=== PATIENT | male | born 1935 | race Caucasian/White ===

== ENCOUNTER 2019-10-01 18:34 | Inpatient (IN) | payer MEDICARE ==
--- NOTE | 2019-10-01 20:05 | ER Document Report ---
ED General - General Chief Complaint: Near Syncope Stated Complaint: SYNCOPE Time Seen by Provider: 10/01/19 18:43 Primary Care Provider: ROCHELLE DAVID MD [ASSOCIATE] - Follow up as needed - [facility] Notes: Chief complaint: Syncope 83-year-old man transported here via EMS for evaluation of syncopal episode. This man has severe hearing impairment and is a relatively poor historian. I do not have any of his old records here because he is usually treated in [facility]. Apparently this man has a pacemaker and has had CABG procedure in the past and has had some syncopal episodes previously with a fairly significant episode which occurred about 2 years ago and at that time was apparently felt to be related to cardiac dysrhythmia. He also has had extensive abdominal surgery previously for bowel obstruction and perforation possibly due to diverticular disease. He says he has been vomiting and having mid abdominal cramping intermittently for over 2 weeks. He was standing in his kitchen this evening trying to open a package of takeout delivery food when he told his that he felt unsteady as though he was perhaps going to faint. He then proceeded to crumpled to the floor and was briefly unresponsive. apparently did not observe any tonic-clonic movements. EMS was called and arrived in less than 5 minutes noting patient was regaining consciousness at that time with no other specific complaints. They transported him here. They reported that his vital signs were stable during transport. Patient further reports that he has had some dark stools within the last several days. He denies any known prior history of GI bleeding. Patient has some dull headache at this time and some soreness of his neck. He denies any neurologic deficit. He denies any chest pain or difficulty breathing. He says he has intermittent cramping abdominal discomfort. He denies dysuria. He denies any long bone injuries related to his fall. - Related Data Allergies/Adverse Reactions: Penicillins Allergy (Verified 10/01/19 18:44) Past Medical History - General Information source: Patient, Emergency Med Personnel - Social History Smoking Status: Former Smoker Family History: Reviewed & Not Pertinent Patient has suicidal ideation: No Patient has homicidal ideation: No - Past Medical History Cardiac Medical History: Reports: Hx Coronary Artery Disease, Hx Hypercholesterolemia, Hx Hypertension Endocrine Medical History: Reports: Hx Diabetes Mellitus Type 2 GI Medical History: Reports: Hx Gastroesophageal Reflux Disease, Other - History of bowel perforation Psychiatric Medical History: Reports: Hx Depression Past Surgical History: Reports: Hx Abdominal Surgery - bowel repair, Hx Cardiac Surgery - pacemaker, stent, Hx Pacemaker Review of Systems - Review of Systems Notes: Constitutional: Negative for fever. HENT: Negative for sore throat. Eyes: Negative for visual changes. Cardiovascular: Negative for chest pain. Respiratory: Negative for shortness of breath. Gastrointestinal: As per HPI. Genitourinary: Negative for dysuria. Musculoskeletal: Negative for back pain. Skin: Negative for rash. Neurological: As per HPI. 10 point ROS negative except as marked above and in HPI. Physical Exam - Vital signs Vitals: Temp Resp BP Pulse Ox 97.4 F 17 178/83 H 96 10/01/19 18:36 10/01/19 18:36 10/01/19 18:36 10/01/19 18:36 - Notes Notes: GENERAL: Elderly male with profound hearing impairment and use of hearing aids appearing in no acute distress. SKIN: Good turgor no rashes. HEAD: Normocephalic. Multiple superficial abrasions over forehead area. EYES: PERRLA. EOMI. Conjunctivae and sclerae clear. EARS: CANALS AND TMS CLEAR. Profound hearing impairment with use of hearing aids bilaterally. NOSE: CLEAR. MOUTH: Moist mucosa. Very poor dentition with advanced dental decay. No stridor or edema. No drooling. NECK: Mild diffuse tenderness posteriorly without step-off. No masses or thyromegaly. No adenopathy. Carotids 2+ without bruits. No JVD. BACK: Symmetrical without tenderness. CHEST: Healed midline CABG scar present. Pacemaker present upper anterior chest left. Respirations unlabored. Breath sounds clear and symmetrical. HEART: Regular rhythm. No murmur gallop or rub. ABDOMEN: Patient has a large ventral hernia which is easily reducible. Multiple surgical scars present. Soft nontender without masses, organomegaly or rebound. Bowel sounds normally active. No bruits. Rectal: Normal tone. No masses. Stool is heme negative and light brown in color. EXTREMITIES: No edema. No calf tenderness. Cap refill less than 1.5 seconds. Dorsalis pedis and posterior tibial pulses 3+ and symmetrical. NEUROLOGICAL: GCS 15. Alert and oriented x3. Fluent speech. Cranial nerves II through XII intact. Sensorimotor and cerebellar normal. Normal tone. PSYCHIATRIC: Appropriate affect. Course - Re-evaluation Re-evalutation: 10/02/19 01:08 This is an elderly gentleman with multiple medical problems who had an unexplained syncopal episode at home. I spoke with his by telephone and she says that he complained of some abdominal pain and then felt dizzy and that she tried to push a chair up underneath him but he went all the way to the floor and was unconscious for about 1 minute. He apparently had fecal incontinence but no urinary continence never no tonic-clonic movements described. When he regained consciousness he was fully oriented. He was noted to have some abrasions over the facial area here. He has a pacemaker. He has a substantial ventral hernia from prior abdominal surgery. His stool is heme-negative here. He is not hypotensive. Hemoglobin is normal. White count is not elevated. His EKG did not show acute changes although he is in a paced rhythm. His troponin is normal. His chemistry profile shows some mild renal insufficiency and we do not have any baseline studies for comparison. Chest x-ray showed some cardiomegaly and has had a previous CABG and pacemaker. CT of the abdomen showed postsurgical changes and a lot of retained stool in the colon. Head CT shows a meningioma present left frontal area. CT of the C-spine shows changes from all cervical fusion with hardware present but there is no fracture. indicates that he had surgery in the past for pituitary tumor. I was able to contact Dr. Randhawa in the neurosurgery department at [facility] in [place] and he has reviewed her current CT as well as old records for this gentleman. 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 He is also known to have a left frontal meningioma. We discussed possibility this man could have had a seizure. Dr. Espinal recommended against loading him with an anticonvulsant at this time. He did not feel the patient need to be transferred. He recommended local admission by medicine for at least 24 hours. He indicates that [facility] neurosurgery will be happy to see this gentleman for follow-up. 10/02/19 01:23 Admission has been accepted by the on-call hospitalist Dr. Ayaz Martin at this time. - Vital Signs Vital signs: Temp Pulse Resp BP Pulse Ox 98.0 F 65 18 104/74 97 10/02/19 00:29 10/02/19 00:36 10/02/19 00:29 10/02/19 00:36 10/02/19 00:28 - Laboratory Result Diagrams: 10/01/19 18:42 10/01/19 18:42 Laboratory results interpreted by me: 10/01/19 10/01/19 10/01/19 18:42 18:42 18:42 RBC 4.15 L Hgb 12.7 L Hct 37.1 L RDW 15.1 H Sodium 134.6 L BUN 32 H Creatinine 1.64 H Est GFR ( Amer) 49 L Est GFR (MDRD) Non-Af 40 L Calcium 10.3 H NT-Pro-B Natriuret Pep 1280 H Urine Protein 10/01/19 21:18 RBC Hgb Hct RDW Sodium BUN Creatinine Est GFR ( Amer) Est GFR (MDRD) Non-Af Calcium NT-Pro-B Natriuret Pep Urine Protein 30 H Discharge - Discharge Clinical Impression: Syncope and collapse Condition: Stable Disposition: ADMITTED INPATIENT Admitting Provider: Veronica (Hospitalist) Unit Admitted: Telemetry Referrals: ROCHELLE DAVID MD [ASSOCIATE] - Follow up as needed
[2019-10-01 20:06] LABS: ABSOLUTE EOSINOPHILS # (AUTO) 0.1 10^3/uL (0.0-0.6); ABSOLUTE MONOCYTES (AUTO) 0.5 10^3/uL (0.1-1.4); ABSOLUTE NEUT (AUTO) 2.5 10^3/uL (1.7-8.2); MEAN CORPUSCULAR HGB CONC 34.2 g/dL (32.0-36.0); TOTAL CELLS COUNTED % (AUTO) 100 %
[2019-10-01 20:10] LABS: ABSOLUTE LYMPHOCYTES (AUTO) 1.2 10^3/uL (0.5-4.7); BASOPHILS % (AUTO) 1.1 % (0-2); EOSINOPHILS % (AUTO) 2.3 % (0-6); HEMATOCRIT 37.1 % (37.9-51.0); HEMOGLOBIN 12.7 g/dL (13.5-17.0); LYMPHOCYTES % (AUTO) 27.2 % (13-45); MEAN CORPUSCULAR HEMOGLOBIN 30.6 pg (27.0-33.4); MEAN CORPUSCULAR VOLUME 90 fl (80-97); MONOCYTES % (AUTO) 11.5 % (3-13); PLATELET COUNT 196 10^3/uL (150-450); RED BLOOD COUNT 4.15 10^6/uL (4.35-5.55); RED CELL DISTRIBUTION WIDTH 15.1 % (11.5-14.0); SEGMENTED NEUTROPHILS % (AUTO) 57.9 % (42-78); WHITE BLOOD COUNT 4.4 10^3/uL (4.0-10.5)
[2019-10-01 20:12] LABS: INTERNATIONAL RATION (INR) 1.06; PROTHROMBIN TIME 13.8 SEC (11.4-15.4)
[2019-10-01 20:13] LABS: PARTIAL THROMBOPLASTIN TIME 31.1 SEC (23.5-35.8)
[2019-10-01 20:15] LABS: ALBUMIN 4.1 g/dL (3.5-5.0); ALKALINE PHOSPHATASE 43 U/L (38-126); ANION GAP 7 (5-19); ASPARTATE AMINO TRANSFERASE 28 U/L (17-59); BILIRUBIN,TOTAL 0.5 mg/dL (0.2-1.3); BLOOD UREA NITROGEN 32 mg/dL (7-20); CALCIUM 10.3 mg/dL (8.4-10.2); CARBON DIOXIDE 30 mmol/L (22-30); CHLORIDE 98 mmol/L (98-107); GLUCOSE 108 mg/dL (75-110); POTASSIUM 4.3 mmol/L (3.6-5.0); TOTAL PROTEIN 6.9 g/dL (6.3-8.2)
[2019-10-01 20:20] LABS: ALCOHOL < 10 mg/dL (NONE DETECTED)
[2019-10-01 20:25] LABS: NT PRO BNP 1280 pg/mL (<450)
[2019-10-01 20:27] LABS: TROPONIN I < 0.012 ng/mL
--- NOTE | 2019-10-01 20:30 | RADIOLOGY REPORT (SQ) ---
EXAM DESCRIPTION: AP upright portable view of the chest CLINICAL HISTORY: 83 years Male, syncope COMPARISON: None. FINDINGS: Exam is overpenetrated. This makes assessment of the lung apices somewhat limited. Lungs: There is pleural parenchymal scarring in the right costophrenic angle. Subtle opacification is seen in the left lower lobe with groundglass opacification. This may represent subtle infiltrate. No pneumothorax. No pleural effusion. Mediastinum: Heart size is enlarged. Dual-chamber pacemaker is in place. Vascular calcifications are seen in the thoracic aorta Bones: Postoperative change of sternotomy. Right shoulder replacement is noted. 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 IMPRESSION: 1. Probable subtle infiltrate in the left lung base. This is nonspecific but may represent bacterial or viral pneumonia. 2. Enlargement the cardiac silhouette. 3. Pleural parenchymal scarring in the right lung base.
--- NOTE | 2019-10-01 21:48 | RADIOLOGY REPORT (SQ) ---
EXAM DESCRIPTION: Contrast-enhanced CT scan of the abdomen and pelvis CLINICAL HISTORY: 83 years Male; PERSISTENT ABDOMINAL PAIN TECHNIQUE: CT of the abdomen and pelvis with intravenous contrast. Delayed imaging of the abdomen and pelvis was also performed. All CT scans at this facility use dose modulation, iterative reconstruction, and/or weight based dosing when appropriate to reduce radiation dose to as low as reasonably achievable. This exam was performed according to our department optimization program which includes automated exposure control, adjustment of the mA and/or kv according to patient size and/or use of iterative reconstruction technique. COMPARISON: None. FINDINGS: Lower chest: Minimal dependent densities present in the lung bases bilaterally. There is postoperative change of sternotomy. Pacemaker is in place. No pericardial abnormality. Abdomen: Liver and biliary tree: Gallbladder surgically absent. No biliary dilatation. Portal vein is patent. Hepatic veins are not yet opacified. No lesions are seen in the liver. There is homogeneous enhancement. Pancreas: Normal Spleen:Within normal limits Kidneys: Symmetric renal enhancement is identified. There is renal cortical thinning bilaterally. In the midportion of the left kidney is a 2.5 cm indeterminate low-density lesion. This is not clearly a simple cyst. No stones. No hydronephrosis. Adrenal glands:Within normal limits Vascular structures: Vascular calcifications are noted in the aorta and visceral vessels. No focal aneurysm. Retroperitoneum: No mass or lymphadenopathy Abdominal wall: Thinning and attenuation of the anterior abdominal wall is seen in the midline near the umbilicus suggesting a hernia. In addition there are multiple abdominal wall hernias cephalad to the umbilicus. These contain omentum. There is no bowel obstruction. GI: Multiple bowel loops appear to be associated with the anterior abdominal wall predominantly at the level of the umbilicus suggesting the possibility of adhesions. There is a large volume of stool in the rectal vault which is distended. Surgical anastomotic line is noted in the sigmoid colon. No bowel obstruction. Appendix: The appendix is not clearly seen. General: No free air. No free fluid Pelvis: Lymph nodes: No mass or lymphadenopathy Bladder: Unremarkable. Pelvis: No pelvic mass or adenopathy. Bones: Bone mineralization is diminished and is vacuum disks at multiple levels with facet and endplate spondylosis. No destructive bone lesions. IMPRESSION: 1. Large volume of stool prominently in the left colon suggesting constipation. No bowel obstruction. 2. Postsurgical change in the sigmoid colon. 3. Multiple abdominal wall hernias with possible abdominal wall adhesions. No bowel obstruction. 4. Minimal dependent density in the lung bases. 5. Atherosclerotic vascular calcifications.
--- NOTE | 2019-10-01 21:53 | RADIOLOGY REPORT (SQ) ---
CT HEAD WITHOUT IV CONTRAST CLINICAL STATEMENT: syncope TECHNIQUE: Axial CT images from skull base to vertex without IV contrast. This exam was performed according to our departmental dose optimization program, and includes the following measures where applicable: automated exposure control, adjustment of the mAs and/or kVp according to patient size and/or exam, and an iterative reconstruction algorithm. COMPARISON: None. FINDINGS: There is no acute intracranial hemorrhage, mass effect or abnormal extra-axial fluid collection. No evidence of an acute territorial infarct is identified. The ventricles and basilar cisterns are patent. There is overall diffuse global volume loss. Low density is noted in the right centrum semiovale suggesting old lacunar infarct. There is a second lacunar infarct seen in the caudate on the right. High in the left superior convexity in the posterior frontal lobe is a soft tissue mass adjacent to the falx which measures 1.9 x 1.2 cm. This is an extra-axial mass with a broad-based dural attachment and is consistent with a meningioma. There is no mass effect on the brain parenchyma. Vascular calcifications are noted at the skull base and the vertebral and carotid arteries. Calvaria: The skull base and calvaria demonstrate no abnormality. Paranasal sinuses: Visualized portions of the orbits are unremarkable. There is mucosal thickening in the right maxillary sinus. skull base: Unremarkable IMPRESSION: 1. No intracranial hemorrhage. 2. Diffuse global volume loss with white matter changes suggestive of small vessel ischemic disease. 3. 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 4. 1.9 x 1.2 cm extra-axial soft tissue mass in the high left posterior frontal convexity consistent with a meningioma. No appreciable mass effect.
[2019-10-01 21:54] LABS: APPEARANCE,URINE SLIGHTLY-CLOUDY; BILIRUBIN,URINE NEGATIVE (NEGATIVE); COLOR,URINE YELLOW; GLUCOSE, URINE NEGATIVE (NEGATIVE); KETONES,URINE NEGATIVE (NEGATIVE); PROTEIN,URINE 30 mg/dL (NEGATIVE); URINE SPECIFIC GRAVITY 1.016; UROBILINOGEN,URINE NEGATIVE mg/dL (<2.0)
--- NOTE | 2019-10-01 21:58 | RADIOLOGY REPORT (SQ) ---
EXAM DESCRIPTION: Unenhanced CT scan of the cervical spine. CLINICAL HISTORY: 83 years Male; syncope TECHNIQUE: Noncontrast cervical spine CT with sagittal and coronal reconstructions. All CT scans at this facility use dose modulation, iterative reconstruction, and/or weight based dosing when appropriate to reduce radiation dose to as low as reasonably achievable. COMPARISON: None FINDINGS: General: Cervical spine is visualized from the skull base through T1 . Straightening of the normal cervical lordosis is noted. There is osseous fusion of the posterior aspect of the C3-C6 vertebral bodies. In addition on the left the facets are fused from C3 through C6 and on the right the facets are fused from C3 through C7. There is 5 mm of C7-T1 anterolisthesis. No acute fracture of the cervical spine is identified. There is an old monik kiln placer's injury at C7. Extensive degenerative changes noted at C1 to with sclerosis, mild fragmentation as well as ossification of an inflammatory pannus. The airway is patent. No pneumothorax in the lung apex. C1-2: Marked degenerative change. C2-3: Unremarkable C3-4: Asymmetric facet arthropathy and uncovertebral hypertrophy results in moderate to severe right neural foraminal narrowing. C4-5: Endplate spondylosis with facet arthropathy results in left neural foraminal narrowing C5-6: Degenerative change results in bilateral neural foraminal narrowing. C6-7: Unremarkable C7-T1: Unremarkable IMPRESSION: 1. No fracture. 2. Nonsurgical fusion of the cervical spine from C3 through C7. 3. 5 mm of C7-T1 anterolisthesis.
[2019-10-02] MEDS ORDERED: ONDANSETRON HCL INJ/PF 4 MG/2 ML SDV IV PRN (03:44)
[2019-10-02] MEDS ORDERED: MAGNESIUM HYDROXIDE SUSP 30 ML UDCUP PO PRN (03:44)
[2019-10-02] MEDS ORDERED: MAG HYDROX/AL HYDROX/SIMETH SUSP 30 ML UDCUP PO PRN (03:44)
[2019-10-02] MEDS ORDERED: ACETAMINOPHEN 325 MG TABLET PO PRN (03:48)
[2019-10-02] MEDS ORDERED: LORAZEPAM INJ 2 MG/1 ML VIAL IV PRN (03:48)
--- NOTE | 2019-10-02 05:26 | PDOC H&P ---
History of Present Illness Admission Date/PCP: 10/02/19 01:29 MAKAYLA ENCINAS MD Patient complains of: Syncopal episode History of Present Illness: DIANA SUAREZ is a 83 year old male who presented to the emergency room via EMS for an acute syncopal episode. The patient has severe presbycusis and is a very poor historian therefore his history is obtained from the best available reliable source when he is unable to provide adequate answers. He admits that he was opening up some delivered food in the kitchen last evening when he suddenly felt unsteady and told his he was going to faint. He then slumped to the floor and was unresponsive for a period of less than a minute. His did not observe any seizure activity but he was noted to have been incontinent of stool. He returned to his normal baseline over the course of the next 10 minutes. He denies other accompanying signs or symptoms. He admits associated dark stools for the last several days. He admits previous syncopal episodes related to cardiac arrhythmias for which he has a pacemaker. He has not identified any additional aggravating or ameliorating factors for his syncopal episodes. EMS arrived approximately 5 minutes after the onset and reports that he was sitting up and talking at the time they arrived.In the ER he complained of a dull headache and intermittent abdominal cramps. He has post fall ER evaluation was negative. Past Medical History Cardiac Medical History: Reports: Coronary Artery Disease, Hyperlipidema, Hypertension, Other - Syncopal episodes requiring pacemaker Pulmonary Medical History: Denies: Asthma, Chronic Obstructive Pulmonary Disease (COPD) EENT Medical History: Reports: Eyes - Prescription lenses, Ears - Severe presbycusis, hearing aids Neurological Medical History: Reports: Other - Meningioma Denies: Hemorrhagic CVA, Ischemic CVA, Seizures Endocrine Medical History: Reports: Diabetes Mellitus Type 2 Denies: Diabetes Mellitus Type 1, Hyperthyroidism, Hypothyroidism, Obesity Renal/ Medical History: Denies: Chronic Kidney Disease, Nephrolithiasis Malignancy Medical History: Reports: None GI Medical History: Reports: Gastroesophageal Reflux Disease, Other - History of bowel perforation Denies: Cirrhosis, Hepatitis Musculoskeltal Medical History: Denies: Arthritis, Gout Skin Medical History: Denies: Eczema, Psoriasis Psychiatric Medical History: Reports: Depression Denies: Alcohol Dependency, Substance Abuse, Tobacco Dependency Traumatic Medical History: Reports: None Hematology: Denies: Anemia, Bleeding Tendencies Infectious Medical History: Reports: None Past Surgical History Past Surgical History: Reports: Orthopedic Surgery - Bilateral knee surgeries, Pacemaker, Other - Meningioma surgery Social History Information Source: Patient Lives with: Spouse/Significant other Smoking Status: Former Smoker Electronic Cigarette use?: No Frequency of Alcohol Use: None Hx Recreational Drug Use: No Drugs: None Hx Prescription Drug Abuse: No - Advance Directive Resuscitation Status: Full Code Surrogate healthcare decision maker:: Rita Suarez Family History Family History: CAD, Hypertension Parental Family History Reviewed: Yes Children Family History Reviewed: No Sibling(s) Family History Reviewed.: Yes Medication/Allergy Allergies/Adverse Reactions: Penicillins Allergy (Verified 10/01/19 18:44) Review of Systems Constitutional: ABSENT: chills, fever(s) Eyes: ABSENT: visual disturbances, other - Eye pain Ears: ABSENT: hearing changes, other - Ear pain Nose, Mouth, and Throat: ABSENT: headache(s), sore throat Cardiovascular: ABSENT: chest pain, palpitations Respiratory: ABSENT: cough, dyspnea Gastrointestinal: PRESENT: as per HPI, melena. ABSENT: abdominal pain, constipation, diarrhea, nausea, vomiting Genitourinary: ABSENT: dysuria, hematuria Musculoskeletal: ABSENT: back pain, joint swelling Integumentary: ABSENT: diaphoresis, pruritus, rash Neurological: PRESENT: as per HPI, syncope. ABSENT: confusion, convulsions, focal weakness, memory loss Psychiatric: ABSENT: anxiety, depression Endocrine: ABSENT: cold intolerance, heat intolerance, polydipsia, polyphagia, polyuria Hematologic/Lymphatic: ABSENT: easy bleeding, easy bruising Physical Exam Vital Signs: Temp Pulse Resp BP Pulse Ox 97.8 F 65 20 141/77 H 92 10/02/19 03:03 10/02/19 00:36 10/02/19 03:01 10/02/19 03:00 10/02/19 03:01 Intake & Output 09/30/19 10/01/19 10/02/19 23:59 23:59 23:59 Intake Total 500 Balance 500 Weight 75.8 kg General appearance: PRESENT: no acute distress, cooperative Head exam: PRESENT: atraumatic, normocephalic Eye exam: ABSENT: conjunctival injection, scleral icterus Ear exam: PRESENT: normal external ear exam. ABSENT: bleeding, drainage Mouth exam: PRESENT: dry mucosa, neck supple Teeth exam: PRESENT: dental caries, poor dentation Neck exam: ABSENT: thyromegaly, tracheal deviation Respiratory exam: PRESENT: clear to auscultation tonny, symmetrical, unlabored Cardiovascular exam: PRESENT: RRR. ABSENT: clicks, gallop, rubs Pulses: PRESENT: normal radial pulses, normal dorsalis pedis pul Vascular exam: PRESENT: normal capillary refill. ABSENT: pallor GI/Abdominal exam: PRESENT: normal bowel sounds, soft Rectal exam: PRESENT: deferred Extremities exam: ABSENT: joint swelling, pedal edema Musculoskeletal exam: ABSENT: deformity, dislocation Neurological exam: PRESENT: alert, oriented to person, oriented to place, oriented to time, other - Severe presbycusis bilaterally Psychiatric exam: PRESENT: appropriate affect, normal mood Skin exam: PRESENT: dry, intact, warm. ABSENT: jaundice, rash, urticaria Results Laboratory Results: 10/01/19 18:42 10/01/19 18:42 10/01/19 10/01/19 10/01/19 18:42 18:42 18:42 WBC 4.4 RBC 4.15 L Hgb 12.7 L Hct 37.1 L MCV 90 MCH 30.6 MCHC 34.2 RDW 15.1 H Plt Count 196 Seg Neutrophils % 57.9 Sodium 134.6 L Potassium 4.3 Chloride 98 Carbon Dioxide 30 Anion Gap 7 BUN 32 H Creatinine 1.64 H Est GFR ( Amer) 49 L Glucose 108 Lactic Acid 1.4 Calcium 10.3 H Magnesium 1.9 Total Bilirubin 0.5 AST 28 Alkaline Phosphatase 43 Total Protein 6.9 Albumin 4.1 Lipase 194.1 Urine Color Urine Appearance Urine pH Ur Specific [place] Urine Protein Urine Glucose (UA) Urine Ketones Urine Blood Urine RBC (Auto) 10/01/19 21:18 WBC RBC Hgb Hct MCV MCH MCHC RDW Plt Count Seg Neutrophils % Sodium Potassium Chloride Carbon Dioxide Anion Gap BUN Creatinine Est GFR ( Amer) Glucose Lactic Acid Calcium Magnesium Total Bilirubin AST Alkaline Phosphatase Total Protein Albumin Lipase Urine Color YELLOW Urine Appearance SLIGHTLY-CLOUDY Urine pH 8.0 Ur Specific [place] 1.016 Urine Protein 30 H Urine Glucose (UA) NEGATIVE Urine Ketones NEGATIVE Urine Blood NEGATIVE Urine RBC (Auto) 1 10/01/19 18:42 Troponin I < 0.012 NT-Pro-B Natriuret Pep 1280 H Impressions: Abdomen/Pelvis CT 10/01/19 19:53 IMPRESSION: 1. Large volume of stool prominently in the left colon suggesting constipation. No bowel obstruction. 2. Postsurgical change in the sigmoid colon. 3. Multiple abdominal wall hernias with possible abdominal wall adhesions. No bowel obstruction. 4. Minimal dependent density in the lung bases. 5. Atherosclerotic vascular calcifications. Cervical Spine CT 10/01/19 19:53 IMPRESSION: 1. No fracture. 2. Nonsurgical fusion of the cervical spine from C3 through C7. 3. 5 mm of C7-T1 anterolisthesis. Chest X-Ray 10/01/19 19:53 IMPRESSION: 1. Probable subtle infiltrate in the left lung base. This is nonspecific but may represent bacterial or viral pneumonia. 2. Enlargement the cardiac silhouette. 3. Pleural parenchymal scarring in the right lung base. Head CT 10/01/19 19:53 IMPRESSION: 1. No intracranial hemorrhage. 2. Diffuse global volume loss with white matter changes suggestive of small vessel ischemic disease. 3. 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 4. 1.9 x 1.2 cm extra-axial soft tissue mass in the high left posterior frontal convexity consistent with a meningioma. No appreciable mass effect. Assessment and Plan - Diagnosis (2) Coronary artery disease Qualifiers: Coronary Disease-Associated Artery/Lesion type: [place] artery [place] vs. transplanted heart: [place] heart Associated angina: without angina Qualified Code(s): I25.10 - Atherosclerotic heart disease of [place] coronary artery without angina pectoris Is this a current diagnosis for this admission?: Yes (3) Hypertension Qualifiers: Hypertension type: essential hypertension Qualified Code(s): I10 - Ess ential (primary) hypertension Is this a current diagnosis for this admission?: Yes (4) Hyperlipidemia Qualifiers: Hyperlipidemia type: unspecified Qualified Code(s): E78.5 - Hyperlipidemia, unspecified Is this a current diagnosis for this admission?: Yes (5) Diabetes mellitus type 2 in nonobese Is this a current diagnosis for this admission?: Yes - Plan Summary Summary: Patient is admitted to the medical floor for routine supportive and symptomatic cares. He will be observed in a telemetry bed at the request in direction of his neurologist at [facility]. Neurology does not recommend initiation of a anticonvulsant at this time but instead are just to monitor the patient for 24 to 48 hours with telemetry and treat any seizure activity with Ativan or Valium. If the patient has seizure activity during his hospital course they are recommending the initiation of Keppra as the first therapeutic agent for prevention of further seizures. Patient will be continued on his usual medications once his medication list has been verified and reconciled. CBCs metabolic profiles and magnesium levels be obtained as needed. Patient will be on a diabetic and cardiac restricted diet. Before meals and at bedtime Accu-Cheks will be obtained with sliding scale insulin used to control hyperglycemia and a hypoglycemic protocol in place. - Time Time Spent with patient: 15-24 minutes Medications reviewed and adjusted accordingly: Yes Anticipated discharge: Home - Inpatient Certification Based on my medical assessment, after consideration of the patient's comorbidities, presenting symptoms, or acuity I expect that the services needed warrant INPATIENT care.: Yes I certify that my determination is in accordance with my understanding of Medicare's requirements for reasonable and necessary INPATIENT services [42 CFR 412.3e].: Yes Medical Necessity: Need Close Monitoring Due to Risk of Patient Decompensation, Need For Continuous Telemetry Monitoring, Need for Neurological Checks, Risk of Complication if Not Cared For in Hospital
[2019-10-02] MEDS: PANTOPRAZOLE SODIUM 20 MG TABLET.DR PO SCH (05:27)
[2019-10-02] MEDS: HEPARIN SOD (PORCINE) 5,000 UNIT/ML 1 ML VIAL SUBCUT SCH ×3 (05:27→22:07)
--- NOTE | 2019-10-02 09:39 | EKG REPORT ---
SEVERITY:- ABNORMAL ECG - ATRIAL-PACED COMPLEXES RBBB AND LAFB NONSPECIFIC T ABNORMALITIES, ANT-LAT LEADS POSSIBLE LVH : Confirmed by: Mohan Andrews 02-Oct-2019 09:37:59
[2019-10-02] MEDS: DOCUSATE SODIUM 100 MG CAPSULE PO SCH ×2 (10:37→17:44)
[2019-10-02] MEDS ORDERED: CEFTRIAXONE 1 GM/D5W RTU 1 GM/50 ML RTUPB IV SCH (22:00)
--- NOTE | 2019-10-03 02:14 | Progress Note ---
Provider Note Provider Note: Critical care note for: 10/02/2019 Critical care start time: 21:37 Critical care issue: Positive blood culture I was contacted by the patient's nurse to evaluate the patient for a positive blood culture. Patient's blood culture was positive in 1 bottle for MSSA. Patient is not currently on any antibiotics. Patient is very hard of hearing and does not seem to understand clearly what I am trying to communicate with him but his nurse was able to make him understand that he may have an infection in his blood and we were going to start antibiotics. He seemed to be in agreement with this after her explanation. His exam prior to onset of IV antibiotic therapy is unchanged from his examination earlier in the day at the time I admitted the patient to the hospital. Patient was rechecked several times throughout the evening and head of science hours of 10/03/2019. He continued to do well and showed no sign of adverse reaction to IV Rocephin. Critical care end time: 01:44 Total critical care time: 21 minutes
[2019-10-03] MEDS: HEPARIN SOD (PORCINE) 5,000 UNIT/ML 1 ML VIAL SUBCUT SCH ×3 (06:07→22:46)
[2019-10-03] MEDS: PANTOPRAZOLE SODIUM 20 MG TABLET.DR PO SCH (06:08)
[2019-10-03 06:59] LABS: HEMATOCRIT 35.6 % (37.9-51.0); HEMOGLOBIN 12.2 g/dL (13.5-17.0); MEAN CORPUSCULAR HEMOGLOBIN 30.7 pg (27.0-33.4); MEAN CORPUSCULAR HGB CONC 34.3 g/dL (32.0-36.0); MEAN CORPUSCULAR VOLUME 90 fl (80-97); PLATELET COUNT 157 10^3/uL (150-450); RED BLOOD COUNT 3.98 10^6/uL (4.35-5.55); RED CELL DISTRIBUTION WIDTH 15.2 % (11.5-14.0)
[2019-10-03 07:02] LABS: ANION GAP 6 (5-19); BLOOD UREA NITROGEN 40 mg/dL (7-20); CALCIUM 8.9 mg/dL (8.4-10.2); CARBON DIOXIDE 29 mmol/L (22-30); CHLORIDE 102 mmol/L (98-107); GLUCOSE 81 mg/dL (75-110)
[2019-10-03] MEDS ORDERED: VANCOMYCIN HCL 0 MG in DEXTROSE 5%-WATER 250 ML IV NR (08:30)
[2019-10-03] MEDS: DOCUSATE SODIUM 100 MG CAPSULE PO SCH ×2 (09:40→17:12)
[2019-10-03] MEDS: VANCOMYCIN HCL 1,000 MG in DEXTROSE 5%-WATER 250 ML IV SCH (09:40)
--- NOTE | 2019-10-03 14:35 | PDOC PROGRESS REPORT ---
Subjective Progress Note for:: 10/03/19 Subjective:: Patient appears to be relatively comfortable. He was noted to have a positive blood culture during the night, 1 bottle positive for coagulase-negative staph. There has been no fever nausea vomiting or any other pertinent complaints. Reason For Visit: BACTEREMIA Physical Exam Vital Signs: Temp Pulse Resp BP Pulse Ox 97.7 F 61 20 149/73 H 95 10/03/19 11:33 10/03/19 11:33 10/03/19 11:33 10/03/19 11:33 10/03/19 11:33 Intake & Output 10/02/19 10/03/19 10/04/19 06:59 06:59 06:59 Intake Total 500 1620 490 Output Total 0 200 Balance 500 1420 490 Weight 71.6 kg 72.7 kg General appearance: PRESENT: no acute distress, cooperative, hard of hearing Head exam: PRESENT: normocephalic, other - Small bump and rash on his right forehead Eye exam: PRESENT: EOMI, PERRLA. ABSENT: scleral icterus Ear exam: PRESENT: normal external ear exam Mouth exam: PRESENT: tongue midline Neck exam: ABSENT: carotid bruit, JVD, lymphadenopathy, thyromegaly Respiratory exam: PRESENT: clear to auscultation tonny. ABSENT: rales, rhonchi, wheezes Cardiovascular exam: PRESENT: RRR, +S1, +S2. ABSENT: diastolic murmur, rubs, systolic murmur Pulses: PRESENT: normal dorsalis pedis pul Vascular exam: PRESENT: normal capillary refill GI/Abdominal exam: PRESENT: normal bowel sounds, soft. ABSENT: distended, guarding, mass, organolmegaly, rebound, tenderness Rectal exam: PRESENT: deferred Extremities exam: PRESENT: full ROM. ABSENT: calf tenderness, clubbing, pedal edema Neurological exam: PRESENT: alert, awake, oriented to person, oriented to place, oriented to time, oriented to situation, CN II-XII grossly intact. ABSENT: motor sensory deficit Psychiatric exam: PRESENT: appropriate affect, normal mood. ABSENT: homicidal ideation, suicidal ideation Skin exam: PRESENT: dry, intact, warm. ABSENT: cyanosis, rash Results Laboratory Results: 10/03/19 06:22 10/03/19 06:22 10/03/19 10/03/19 10/03/19 06:22 06:22 06:22 WBC 4.0 RBC 3.98 L Hgb 12.2 L Hct 35.6 L MCV 90 MCH 30.7 MCHC 34.3 RDW 15.2 H Plt Count 157 Sodium 137.1 Potassium 4.0 Chloride 102 Carbon Dioxide 29 Anion Gap 6 BUN 40 H Creatinine 1.66 H Est GFR ( Amer) 48 L Glucose 81 Calcium 8.9 Magnesium 1.7 TSH 1.25 10/01/19 20:40 Blood Blood Culture (PCR) - Final Staphylococcus Species 10/01/19 10/02/19 10/02/19 18:42 03:56 10:04 Troponin I < 0.012 < 0.012 < 0.012 NT-Pro-B Natriuret Pep 1280 H 10/02/19 16:09 Troponin I < 0.012 NT-Pro-B Natriuret Pep Impressions: Abdomen/Pelvis CT 10/01/19 19:53 IMPRESSION: 1. Large volume of stool prominently in the left colon suggesting constipation. No bowel obstruction. 2. Postsurgical change in the sigmoid colon. 3. Multiple abdominal wall hernias with possible abdominal wall adhesions. No bowel obstruction. 4. Minimal dependent density in the lung bases. 5. Atherosclerotic vascular calcifications. Cervical Spine CT 10/01/19 19:53 IMPRESSION: 1. No fracture. 2. Nonsurgical fusion of the cervical spine from C3 through C7. 3. 5 mm of C7-T1 anterolisthesis. Chest X-Ray 10/01/19 19:53 IMPRESSION: 1. Probable subtle infiltrate in the left lung base. This is nonspecific but may represent bacterial or viral pneumonia. 2. Enlargement the cardiac silhouette. 3. Pleural parenchymal scarring in the right lung base. Head CT 10/01/19 19:53 IMPRESSION: 1. No intracranial hemorrhage. 2. Diffuse global volume loss with white matter changes suggestive of small vessel ischemic disease. 3. 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 4. 1.9 x 1.2 cm extra-axial soft tissue mass in the high left posterior frontal convexity consistent with a meningioma. No appreciable mass effect. Assessment and Plan - Diagnosis (1) Bacteremia due to coagulase-negative Staphylococcus Is this a current diagnosis for this admission?: Yes Plan: 1 out of 2 bottles with patient exhibiting no signs of bacteremia or sepsis. Patient however does have a pacemaker. And he was admitted with a syncope. He was started on ceftriaxone during the night however I did change this to vancomycin. Repeat blood cultures have been ordered and an echocardiogram was also ordered. We will follow-up with results. It is pretty likely that this is a contamination. Discussed with patient's on the phone and updated on condition and tentati ve diagnosis (2) Hypertension Qualifiers: Hypertension type: essential hypertension Qualified Code(s): I10 - Essential (primary) hypertension Is this a current diagnosis for this admission?: Yes (3) Syncope and collapse Is this a current diagnosis for this admission?: Yes Plan: Patient has had no arrhythmias since admission. (4) Artificial pacemaker Is this a current diagnosis for this admission?: Yes - Plan Summary Summary: Patient is admitted to the medical floor for routine supportive and symptomatic cares. He will be observed in a telemetry bed at the request in direction of his neurologist at [facility]. Neurology does not recommend initiation of a anticonvulsant at this time but instead are just to monitor the patient for 24 to 48 hours with telemetry and treat any seizure activity with Ativan or Valium. If the patient has seizure activity during his hospital course they are recommending the initiation of Keppra as the first therapeutic agent for prevention of further seizures. Patient will be continued on his usual medications once his medication list has been verified and reconciled. CBCs metabolic profiles and magnesium levels be obtained as needed. Patient will be on a diabetic and cardiac restricted diet. Before meals and at bedtime Accu-Cheks will be obtained with sliding scale insulin used to control hyperglycemia and a hypoglycemic protocol in place. / patient has had no seizure activity and no arrhythmia since admission. CT head does show 1.9 x 1.2 cm extra-axial soft tissue mass consistent with a meningioma with no appreciable mass-effect. Patient spouse tells me that this is known and chronic and he has been seen by neuro surgery and no indication for intervention at this time
--- NOTE | 2019-10-03 17:19 | XCELERA REPORT ---
[address] [address] Transthoracic Echocardiogram Report Name: DIANA DUBOIS Age: 83 yrs Gender: Male : 1935 Patient Status: Inpatient Patient Location: [address] [place], [place] [address] Study Date: 10/03/2019 10:02 AM Height: 70 in Weight: 160 lb BSA: 1.9 m2 Procedure: A complete two-dimensional transthoracic echocardiogram was performed (2D, M-mode, spectral and color flow Doppler). The study was technically difficult with many images being suboptimal in quality. Reason For Study: Staph Bacteremia Ordering Physician: ALISIA BROWNE Performed By: Bouchra Nicole Interpretation Summary FINDINGS: LEFT VENTRICLE: LV Systolic function: LVEF is felt to be within normal limits. Best estimate is approximately LVEF is 60 %. LV Diastolic Function: Grade II diastolic dysfunction noted. Wall motion : No definite regional wall motion abnormalities are noted. Left ventricular chamber size : is within normal limit. Left ventricular wall thickness : is increased indicative of Mild LVH. INTERVENTRICULAR SEPTUM: no evidence of VSD noted. No asymmetric hypertrophy noted. RIGHT VENTRICLE: RV systolic function : is felt to be within normal limit. Right Ventricle Size : is within normal limits. LEFT ATRIUM size : mildly dilated. RIGHT ATRIUM size : is within normal limit. INTER ATRIAL SEPTUM : No definite atrial septal defect noted however a small PFO could be missed. AORTIC ROOT : seems to be within normal limits. Ascending aorta is not well visualized. INFERIOR VENA CAVA: was not well visualized. VALVES: MITRAL VALVE : Leaflets are mildly thickened. Mobility seems to be within normal limits. Mitral Regurgitation : Trace to mild mitral regurgitation is noted. Mitral Stenosis: No mitral stenosis noted. Mitral valve prolapse : none noted. AORTIC VALVE: seems to be trileaflet with thickening but adequate excursion. Aortic stenosis : No aortic stenosis noted. Aortic regurgitation : mild aortic incompetence noted. TRICUSPID VALVE : mobility and structures within normal limit. Tricuspid stenosis : no tricuspid stenosis noted. Tricuspid regurgitation : Trace tricuspid regurgitation noted. Estimated RVSP : tricuspid jet envelope not well defined to measure RV systolic pressure accurately. PULMONARY VALVE : was not well visualized but no significant abnormalities suspected. Pulmonary stenosis : no significant pulmonary stenosis noted. Pulmonary regurgitation : no significant pulmonary regurgitation noted. MASSES AND THROMBUS : No definite intracardiac thrombus or masses are noted. PERICARDIUM: No pericardial effusion was noted. IMPRESSION : 1. Normal LVEF. 2. Mild LVH noted. 3. Grade II Diastolic Dysfunction noted. 4. FINDINGS: LEFT VENTRICLE: LV Systolic function: LVEF is felt to be within normal limits. Best estimate is approximately LVEF is 60 %. LV Diastolic Function: Grade II diastolic dysfunction noted. Wall motion : No definite regional wall motion abnormalities are noted. Left ventricular chamber size : is within normal limit. Left ventricular wall thickness : is increased indicative of Mild LVH. INTERVENTRICULAR SEPTUM: no evidence of VSD noted. No asymmetric hypertrophy noted. RIGHT VENTRICLE: RV systolic function : is felt to be within normal limit. Right Ventricle Size : is within normal limits. LEFT ATRIUM size : mildly dilated. RIGHT ATRIUM size : is within normal limit. INTER ATRIAL SEPTUM : No definite atrial septal defect noted however a small PFO could be missed. AORTIC ROOT : seems to be within normal limits. Ascending aorta is not well visualized. INFERIOR VENA CAVA: was not well visualized. VALVES: MITRAL VALVE : Leaflets are mildly thickened. Mobility seems to be within normal limits. Mitral Regurgitation : Trace to mild mitral regurgitation is noted. Mitral Stenosis: No mitral stenosis noted. Mitral valve prolapse : none noted. AORTIC VALVE: seems to be trileaflet with thickening but adequate excursion. Aortic stenosis : No aortic stenosis noted. Aortic regurgitation : mild aortic incompetence noted. TRICUSPID VALVE : mobility and structures within normal limit. Tricuspid stenosis : no tricuspid stenosis noted. Tricuspid regurgitation : Trace tricuspid regurgitation noted. Estimated RVSP : tricuspid jet envelope not well defined to measure RV systolic pressure accurately. PULMONARY VALVE : was not well visualized but no significant abnormalities suspected. Pulmonary stenosis : no significant pulmonary stenosis noted. Pulmonary regurgitation : no significant pulmonary regurgitation noted. MASSES AND THROMBUS : No definite intracardiac thrombus or masses are noted. PERICARDIUM: No pericardial effusion was noted. IMPRESSION : 1. Normal LVEF. 2. Mild LVH noted. 3. Grade II Diastolic Dysfunction noted. 4. FINDINGS: LEFT VENTRICLE: LV Systolic function: LVEF is felt to be within normal limits. Best estimate is approximately LVEF is 60 %. LV Diastolic Function: Grade II diastolic dysfunction noted. Wall motion : No definite regional wall motion abnormalities are noted. Left ventricular chamber size : is within normal limit. Left ventricular wall thickness : is increased indicative of Mild LVH. INTERVENTRICULAR SEPTUM: no evidence of VSD noted. No asymmetric hypertrophy noted. RIGHT VENTRICLE: RV systolic function : is felt to be within normal limit. Right Ventricle Size : is within normal limits. LEFT ATRIUM size : mildly dilated. RIGHT ATRIUM size : is within normal limit. INTER ATRIAL SEPTUM : No definite atrial septal defect noted however a small PFO could be missed. AORTIC ROOT : seems to be within normal limits. Ascending aorta is not well visualized. INFERIOR VENA CAVA: was not well visualized. VALVES: MITRAL VALVE : Leaflets are mildly thickened. Mobility seems to be within normal limits. Mitral Regurgitation : Trace to mild mitral regurgitation is noted. Mitral Stenosis: No mitral stenosis noted. Mitral valve prolapse : none noted. AORTIC VALVE: seems to be trileaflet with thickening but adequate excursion. Aortic stenosis : No aortic stenosis noted. Aortic regurgitation : mild aortic incompetence noted. TRICUSPID VALVE : mobility and structures within normal limit. Tricuspid stenosis : no tricuspid stenosis noted. Tricuspid regurgitation : Trace tricuspid regurgitation noted. Estimated RVSP : tricuspid jet envelope not well defined to measure RV systolic pressure accurately. PULMONARY VALVE : was not well visualized but no significant abnormalities suspected. Pulmonary stenosis : no significant pulmonary stenosis noted. Pulmonary regurgitation : no significant pulmonary regurgitation noted. MASSES AND THROMBUS : No definite intracardiac thrombus or masses are noted. PERICARDIUM: No pericardial effusion was noted. IMPRESSION : 1. Normal LVEF. 2. Mild LVH noted. 3. Grade II Diastolic Dysfunction noted. 4. Trace to mild aortic, trace to mild mitral regurgitation noted. 5.No definite vegetations noted. Consider multiple blood cultures, transesophageal echocardiogram etc. if clinical suspicion is high. MMode/2D Measurements & Calculations RVDd: 4.0 cm LVIDd: 5.1 cm FS: 37.3 % Ao root diam: 2.8 cm IVSd: 0.96 cm LVIDs: 3.2 cm EDV(Teich): 122.9 ml Ao root area: 6.2 cm2 LVPWd: 0.96 cm ESV(Teich): 40.6 ml LA dimension: 4.5 cm EF(Teich): 67.0 % Doppler Measurements & Calculations MV E max anthony: MV P1/2t max anthony: Ao V2 max: AI max anthony: 42.2 cm/sec 40.5 cm/sec 125.5 cm/sec 552.5 cm/sec MV A max anthony: MV P1/2t: 72.0 msec Ao max P.3 mmHgAI max P.0 cm/sec MVA(P1/2t): 3.1 cm2 122.1 mmHg MV E/A: 0.59 MV dec slope: AI dec slope: 313.9 cm/sec2 164.6 cm/sec2 AI P1/2t: MV dec time: 515.5 msec 0.24 sec LV V1 max PG: PA V2 max: AV P1/2t-pr_phl: MV P1/2t-pr_phl: 5.1 mmHg 74.0 cm/sec 515.5 msec 72.0 msec LV V1 max: PA max P.2 mmHg 112.6 cm/sec : ALISIA BROWNE Shyamal
[2019-10-04 05:44] LABS: HEMATOCRIT 39.1 % (37.9-51.0); HEMOGLOBIN 13.3 g/dL (13.5-17.0); MEAN CORPUSCULAR HEMOGLOBIN 30.7 pg (27.0-33.4); MEAN CORPUSCULAR HGB CONC 33.9 g/dL (32.0-36.0); MEAN CORPUSCULAR VOLUME 90 fl (80-97); PLATELET COUNT 174 10^3/uL (150-450); RED BLOOD COUNT 4.32 10^6/uL (4.35-5.55); RED CELL DISTRIBUTION WIDTH 15.2 % (11.5-14.0); WHITE BLOOD COUNT 4.4 10^3/uL (4.0-10.5)
[2019-10-04] MEDS: HEPARIN SOD (PORCINE) 5,000 UNIT/ML 1 ML VIAL SUBCUT SCH ×2 (06:05→15:24)
[2019-10-04] MEDS: PANTOPRAZOLE SODIUM 20 MG TABLET.DR PO SCH (06:06)
[2019-10-04 06:11] LABS: ANION GAP 9 (5-19); BLOOD UREA NITROGEN 33 mg/dL (7-20); CALCIUM 9.5 mg/dL (8.4-10.2); CARBON DIOXIDE 22 mmol/L (22-30); CHLORIDE 106 mmol/L (98-107); GLUCOSE 84 mg/dL (75-110); POTASSIUM 4.9 mmol/L (3.6-5.0)
[2019-10-04 08:53] VITALS: BP 170/82
[2019-10-04] MEDS: VANCOMYCIN HCL 1,000 MG in DEXTROSE 5%-WATER 250 ML IV SCH (11:08)
[2019-10-04] MEDS: DOCUSATE SODIUM 100 MG CAPSULE PO SCH (11:08)
[2019-10-04] MEDS ORDERED: BISACODYL 10 MG SUPP.RECT PR PRN (12:07)
--- NOTE | 2019-10-04 12:35 | PDOC DISCHARGE SUMMARY ---
Impression - Admit/DC Date/PCP Admission Date/Primary Care Provider: 10/02/19 01:29 MAKAYLA ENCINAS MD Discharge Date: 10/04/19 - Discharge Diagnosis (1) Hypertension Is this a current diagnosis for this admission?: Yes (2) Syncope and collapse Is this a current diagnosis for this admission?: Yes (3) Artificial pacemaker Is this a current diagnosis for this admission?: Yes (4) Constipation Is this a current diagnosis for this admission?: Yes (5) Coronary artery disease Is this a current diagnosis for this admission?: Yes (6) Acute kidney injury Is this a current diagnosis for this admission?: Yes - Assessment Summary: Patient is admitted to the medical floor for routine supportive and symptomatic cares. He will be observed in a telemetry bed at the request in direction of his neurologist at [facility]. Neurology does not recommend initiation of a anticonvulsant at this time but instead are just to monitor the patient for 24 to 48 hours with telemetry and treat any seizure activity with Ativan or Valium. If the patient has seizure activity during his hospital course they are recommending the initiation of Keppra as the first therapeutic agent for prevention of further seizures. Patient will be continued on his usual medications once his medication list has been verified and reconciled. CBCs metabolic profiles and magnesium levels be obtained as needed. Patient will be on a diabetic and cardiac restricted diet. Before meals and at bedtime Accu-Cheks will be obtained with sliding scale insulin used to control hypergly cemia and a hypoglycemic protocol in place. 10/02 patient has had no seizure activity and no arrhythmia since admission. CT head does show 1.9 x 1.2 cm extra-axial soft tissue mass consistent with a m eningioma with no appreciable mass-effect. Patient spouse tells me that this is known and chronic and he has been seen by neuro surgery and no indication for intervention at this time - Additional Information Resuscitation Status: Full Code Discharge Diet: Diabetic Discharge Activity: Activity As Tolerated Referrals: MAKAYLA ENCINAS MD [Primary Care Provider] - 10/08/19 3:00 pm Home Medications: Aspirin [Adult Low Dose Aspirin EC] 81 mg PO DAILY 10/02/19 Atorvastatin Calcium [Lipitor 80 mg Tablet] 80 mg PO DAILY 10/02/19 Levothyroxine Sodium [Synthroid 0.1 mg Tablet] 0.1 mg PO DAILY 10/02/19 Lisinopril [Prinivil 5 mg Tablet] 5 mg PO DAILY 10/02/19 Lorazepam [Ativan 0.5 mg Tablet] 0.5 mg PO DAILYP PRN 10/02/19 Omeprazole 40 mg PO DAILY 10/02/19 Venlafaxine HCl [Effexor 75 mg Tablet] 75 mg PO DAILY 10/02/19 History of Present Illiness History of Present Illness: DIANA DUBOIS is a 83 year old male Patient presents to the emergency room with complaints of feeling unsteady and then slumping to the floor and being unresponsive for less than 1 minute he was brought to the hospital for further evaluation and management a CT scan done revealed a soft tissue mass in the high left posterior frontal convexity consistent with a meningioma. This appears to be a chronic condition. Hospital Course Hospital Course: Patient was admitted to telemetry floor. He has been in hospital now for about 72 hours. There has been no evidence of any arrhythmia. He has been ambulatory. He has had no seizure activity. There was concern due to his meningioma about seizure activity but none was evident. Patient has been seen by a neurosurgeon before and no surgical intervention has been planned but is advised to follow-up again as needed. He was noted to have 1 blood culture positive for coagulase-negative Staphylococcus aureus. This was felt to be a contaminant as patient exhibited no signs of bacteremia clinically while in hospital. He has been hemodynamically stable and his white count has been normal. However he did have a pacemaker in place and so an echocardiogram was done which revealed no evidence of vegetations. Patient also had repeat blood cultures done and this have been negative. He did receive vancomycin during this time in the interim. At this time I feel that this is a contaminant and no need for further management of these bacteremia so patient is been discharged home as he requires no further intervention Echocardiogram done reveals grade 2 diastolic dysfunction, no definite regional wall motion abnormalities and no evidence of vegetations Physical Exam Vital Signs: Temp Pulse Resp BP Pulse Ox 97.6 F 69 19 170/82 H 98 10/04/19 08:00 10/04/19 08:00 10/04/19 08:00 10/04/19 08:00 10/04/19 08:00 Intake & Output 10/03/19 10/04/19 10/05/19 06:59 06:59 06:59 Intake Total 1620 850 Output Total 200 Balance 1420 850 Weight 72.7 kg 73.6 kg General appearance: PRESENT: no acute distress, cooperative, hard of hearing Head exam: PRESENT: other - small bumps on his head, small rash to Eye exam: PRESENT: conjunctiva pink, EOMI, PERRLA. ABSENT: scleral icterus Ear exam: PRESENT: normal external ear exam Mouth exam: PRESENT: moist, tongue midline Neck exam: ABSENT: carotid bruit, JVD, lymphadenopathy, thyromegaly Respiratory exam: PRESENT: clear to auscultation tonny. ABSENT: rales, rhonchi, wheezes Cardiovascular exam: PRESENT: RRR, +S1, +S2. ABSENT: diastolic murmur, rubs, systolic murmur Pulses: PRESENT: normal dorsalis pedis pul Vascular exam: PRESENT: normal capillary refill GI/Abdominal exam: PRESENT: normal bowel sounds, soft. ABSENT: distended, guarding, mass, organolmegaly, rebound, tenderness Rectal exam: PRESENT: deferred Extremities exam: PRESENT: full ROM. ABSENT: calf tenderness, clubbing, pedal edema Neurological exam: PRESENT: alert, awake, oriented to person, oriented to place, oriented to time. ABSENT: motor sensory deficit Psychiatric exam: PRESENT: appropriate affect, normal mood. ABSENT: homicidal ideation, suicidal ideation Skin exam: PRESENT: dry, intact, warm. ABSENT: cyanosis, rash Results Laboratory Results: WBC 4.4 10^3/uL (4.0-10.5) 10/04/19 05:29 RBC 4.32 10^6/uL (4.35-5.55) L 10/04/19 05:29 Hgb 13.3 g/dL (13.5-17.0) L 10/04/19 05:29 Hct 39.1 % (37.9-51.0) 10/04/19 05:29 MCV 90 fl (80-97) 10/04/19 05:29 MCH 30.7 pg (27.0-33.4) 10/04/19 05:29 MCHC 33.9 g/dL (32.0-36.0) 10/04/19 05:29 RDW 15.2 % (11.5-14.0) H 10/04/19 05:29 Plt Count 174 10^3/uL (150-450) 10/04/19 05:29 Lymph % (Auto) 27.2 % (13-45) 10/01/19 18:42 [place] % (Auto) 11.5 % (3-13) 10/01/19 18:42 Eos % (Auto) 2.3 % (0-6) 10/01/19 18:42 Baso % (Auto) 1.1 % (0-2) 10/01/19 18:42 Absolute Neuts (auto) 2.5 10^3/uL (1.7-8.2) 10/01/19 18:42 Absolute Lymphs (auto) 1.2 10^3/uL (0.5-4.7) 10/01/19 18:42 Absolute Monos (auto) 0.5 10^3/uL (0.1-1.4) 10/01/19 18:42 Absolute Eos (auto) 0.1 10^3/uL (0.0-0.6) 10/01/19 18:42 Absolute Basos (auto) 0.0 10^3/uL (0.0-0.2) 10/01/19 18:42 Seg Neutrophils % 57.9 % (42-78) 10/01/19 18:42 PT 13.8 SEC (11.4-15.4) 10/01/19 18:42 INR 1.06 10/01/19 18:42 APTT 31.1 SEC (23.5-35.8) 10/01/19 18:42 Sodium 137.3 mmol/L (137-145) 10/04/19 05:29 Potassium 4.9 mmol/L (3.6-5.0) 10/04/19 05:29 Chloride 106 mmol/L (98-107) 10/04/19 05:29 Carbon Dioxide 22 mmol/L (22-30) 10/04/19 05:29 Anion Gap 9 (5-19) 10/04/19 05:29 BUN 33 mg/dL (7-20) H 10/04/19 05:29 Creatinine 1.30 mg/dL (0.52-1.25) H 10/04/19 05:29 Est GFR ( Amer) > 60 (>60) 10/04/19 05:29 Est GFR (MDRD) Non-Af 53 (>60) L 10/04/19 05:29 Glucose 84 mg/dL (75-110) 10/04/19 05:29 POC Glucose 93 mg/dL (70-110) 10/02/19 02:13 Hemoglobin A1c % 5.5 % (4.7-6.0) 10/03/19 06:22 Lactic Acid 1.4 mmol/L (0.7-2.1) 10/01/19 18:42 Calcium 9.5 mg/dL (8.4-10.2) 10/04/19 05:29 Magnesium 1.7 mg/dL (1.6-2.3) 10/03/19 06:22 Total Bilirubin 0.5 mg/dL (0.2-1.3) 10/01/19 18:42 Direct Bilirubin 0.0 mg/dL (0.0-0.4) 10/01/19 18:42 Neonat Total Bilirubin Not Reportable 10/01/19 18:42 Neonat Direct Bilirubin Not Reportable 10/01/19 18:42 Neonat Indirect Bili Not Reportable 10/01/19 18:42 AST 28 U/L (17-59) 10/01/19 18:42 ALT 16 U/L (<50) 10/01/19 18:42 Alkaline Phosphatase 43 U/L (38-126) 10/01/19 18:42 Troponin I < 0.012 ng/mL 10/02/19 16:09 NT-Pro-B Natriuret Pep 1280 pg/mL (<450) H 10/01/19 18:42 Total Protein 6.9 g/dL (6.3-8.2) 10/01/19 18:42 Albumin 4.1 g/dL (3.5-5.0) 10/01/19 18:42 Lipase 194.1 U/L (23-300) 10/01/19 18:42 TSH 1.25 uIU/mL (0.47-4.68) 10/03/19 06:22 Urine Color YELLOW 10/01/19 21:18 Urine Appearance SLIGHTLY-CLOUDY 10/01/19 21:18 Urine pH 8.0 (5.0-9.0) 10/01/19 21:18 Ur Specific [place] 1.016 10/01/19 21:18 Urine Protein 30 mg/dL (NEGATIVE) H 10/01/19 21:18 Urine Glucose (UA) NEGATIVE mg/dL (NEGATIVE) 10/01/19 21:18 Urine Ketones NEGATIVE mg/dL (NEGATIVE) 10/01/19 21:18 Urine Blood NEGATIVE (NEGATIVE) 10/01/19 21:18 Urine Nitrite (Reflex) NEGATIVE (NEGATIVE) 10/01/19 21:18 Urine Bilirubin NEGATIVE (NEGATIVE) 10/01/19 21:18 Urine Urobilinogen NEGATIVE mg/dL (<2.0) 10/01/19 21:18 Leukocyte Esterase Rfl NEGATIVE (NEGATIVE) 10/01/19 21:18 Urine RBC (Auto) 1 /HPF 10/01/19 21:18 U Hyaline Cast (Auto) 1 /LPF 10/01/19 21:18 Urine WBC (Reflex) 2 /HPF 10/01/19 21:18 Squamous Epi Cells Auto <1 /HPF 10/01/19 21:18 Urine Mucus (Auto) RARE /LPF 10/01/19 21:18 Urine Ascorbic Acid NEGATIVE (NEGATIVE) 10/01/19 21:18 POC Stool Occult Blood NEGATIVE (NEGATIVE) 10/01/19 19:42 Serum Alcohol < 10 mg/dL (NONE DETECTED) 10/01/19 18:42 10/01/19 10/02/19 10/02/19 18:42 03:56 10:04 Troponin I < 0.012 < 0.012 < 0.012 NT-Pro-B Natriuret Pep 1280 H 10/02/19 16:09 Troponin I < 0.012 NT-Pro-B Natriuret Pep Impressions: Abdomen/Pelvis CT 10/01/19 19:53 IMPRESSION: 1. Large volume of stool prominently in the left colon suggesting constipation. No bowel obstruction. 2. Postsurgical change in the sigmoid colon. 3. Multiple abdominal wall hernias with possible abdominal wall adhesions. No bowel obstruction. 4. Minimal dependent density in the lung bases. 5. Atherosclerotic vascular calcifications. Cervical Spine CT 10/01/19 19:53 IMPRESSION: 1. No fracture. 2. Nonsurgical fusion of the cervical spine from C3 through C7. 3. 5 mm of C7-T1 anterolisthesis. Chest X-Ray 10/01/19 19:53 IMPRESSION: 1. Probable subtle infiltrate in the left lung base. This is nonspecific but may represent bacterial or viral pneumonia. 2. Enlargement the cardiac silhouette. 3. Pleural parenchymal scarring in the right lung base. Head CT 10/01/19 19:53 IMPRESSION: 1. No intracranial hemorrhage. 2. Diffuse global volume loss with white matter changes suggestive of small vessel ischemic disease. 3. 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 4. 1.9 x 1.2 cm extra-axial soft tissue mass in the high left posterior frontal convexity consistent with a meningioma. No appreciable mass effect. Plan Health Concerns: Follow-up with PCP as advised Stroke Is this a Stroke Patient?: No Acute Heart Failure - Is this a Heart Failure Patient?: No
[2019-10-05] MEDS ORDERED: VANCOMYCIN HCL 1,250 MG in DEXTROSE 5%-WATER 250 ML IV SCH (10:00)
== END 2019-10-04 16:24 | disposition home or self-care (01) | DRG 312 ==
LOC: ER 18:34 → INTOOBSV 10-02 01:29 → EH 10-02 01:29 → OBSVTOIN 10-02 01:29 → 4S 10-02 03:27
PROVIDERS: ADMIT Emergency Medicine; ATTEND Internal Medicine
DX: R55 Syncope and collapse (principal); N17.9 Acute kidney failure, unspecified; D32.0 Benign neoplasm of cerebral meninges; I10 Essential (primary) hypertension; K59.00 Constipation, unspecified; I25.10 Atherosclerotic heart disease of native coronary artery without angina pectoris; E78.5 Hyperlipidemia, unspecified; H91.10 Presbycusis, unspecified ear; E11.9 Type 2 diabetes mellitus without complications; Z79.82 Long term (current) use of aspirin; Z79.899 Other long term (current) drug therapy; Z95.0 Presence of cardiac pacemaker; Z97.4 Presence of external hearing-aid; Z95.1 Presence of aortocoronary bypass graft; Z88.0 Allergy status to penicillin
CPT/HCPCS: 36415; 70450; 71045; 72125; 74177; 80048; 80053; 80307; 81001; 82270; 82962; 83036; 83605; 83690; 83735; 83880; 84443; 84484; 85025; 85027; 85610; 85730; 87040; 87077; 87150; 87186; 93005; 93010; 93306; 99283; G0378; J0696; J1644; J3370; J3490; J7060